=== PATIENT | female | born 1950 | race Caucasian/White ===

== ENCOUNTER 2017-03-03 23:20 | Emergency (ER) | payer OTHER ==
[~2017-03-03 23:20] MED LIST: ALLERGY RELIEF10 MG PO; ASPIRIN FOR CHI81 MG PO; AUG500 PO; CALCIUM & MAGNE1 CAP PO; COL100 PO; LISINOPRIL AND1 TA1 PO; PREMARIN0.625 M; PREMARIN0.625 M PO; PRI20 PO; TOP50 PO; WARFARIN SOD5 MG PO; XAN5 PO; XARELTO20 MG PO
[2017-03-04 02:18] VITALS: BP 160/88
== END 2017-03-04 02:18 | disposition home or self-care (01) ==
LOC: ED 23:20
DX: S86.812A Strain of other muscle(s) and tendon(s) at lower leg level, left leg, initial encounter (principal); I10 Essential (primary) hypertension; Z88.8 Allergy status to other drugs, medicaments and biological substances; Z88.5 Allergy status to narcotic agent; Z88.6 Allergy status to analgesic agent; Z91.012 Allergy to eggs; Z91.011 Allergy to milk products; Z91.013 Allergy to seafood; X58.XXXA Exposure to other specified factors, initial encounter; Y99.8 Other external cause status; Y93.89 Activity, other specified; Y92.89 Other specified places as the place of occurrence of the external cause
CPT/HCPCS: J1885; Q0092

== ENCOUNTER 2017-03-12 16:52 | Emergency (ER) | payer OTHER ==
[2017-03-12 18:59] LABS: BASOPHIL % 0.1 % (0-2); PLATELET COUNT 191 x10^3mcL (130-400)
[2017-03-12 19:00] LABS: RED CELL DISTRIBUTION WIDTH 14.9 % (11.5-14.5)
[2017-03-12 19:05] LABS: CALCIUM 8.7 mg/dL (8.5-10.1); CARBON DIOXIDE 25.2 mmol/L (21-32); CHLORIDE SERUM 107 mmol/L (98-107); CREATININE SERUM 0.9 mg/dL (0.6-1.0); GFR1 > 60 mL/min; GLUCOSE SERUM 90 mg/dL (74-106); POTASSIUM SERUM 3.9 mmol/L (3.5-5.1); SODIUM SERUM 141 mmol/L (136-145)
[2017-03-12 19:09] LABS: ALBUMIN 3.5 g/dL (3.4-5.0); ALKALINE PHOSPHATASE 75 U/L (46-116); ALT/SGPT 17 U/L (14-59); AST/SGOT 20 U/L (15-37); BILIRUBIN TOTAL 0.48 mg/dL (0.20-1.00); LIPASE 463 IU/L (73-393); TOTAL PROTEIN, SERUM 6.6 g/dL (6.4-8.2)
[2017-03-12 21:43] VITALS: BP 124/79
== END 2017-03-12 21:43 | disposition home or self-care (01) ==
LOC: ED 16:52
PROVIDERS: Emergency Medicine
DX: S52.501A Unspecified fracture of the lower end of right radius, initial encounter for closed fracture (principal); S80.01XA Contusion of right knee, initial encounter; E86.0 Dehydration; R55 Syncope and collapse; I10 Essential (primary) hypertension; Z88.5 Allergy status to narcotic agent; Z88.8 Allergy status to other drugs, medicaments and biological substances; Z91.013 Allergy to seafood; W17.89XA Other fall from one level to another, initial encounter; Y93.89 Activity, other specified; Y99.8 Other external cause status; Y92.89 Other specified places as the place of occurrence of the external cause
CPT/HCPCS: J7030; Q0092

== ENCOUNTER 2017-07-01 23:29 | Emergency (ER) | payer OTHER, MEDICAID ==
[2017-07-01 23:59] LABS: BASOPHIL % 0.2 % (0-2); PLATELET COUNT 188 x10^3mcL (130-400)
[2017-07-02] LABS: RED CELL DISTRIBUTION WIDTH 15.3 % (11.5-14.5)
[2017-07-02] MEDS ORDERED: AMIODARONE HCL200 MG (00:07)
[2017-07-02] MEDS ORDERED: TOPROL XL25 MG (00:08)
[2017-07-02] MEDS ORDERED: ELIQUIS5 MG (00:09)
[2017-07-02 00:18] LABS: CALCIUM 8.1 mg/dL (8.5-10.1); CARBON DIOXIDE 25.9 mmol/L (21-32); POTASSIUM SERUM 3.5 mmol/L (3.5-5.1)
[2017-07-02 00:22] LABS: BILIRUBIN TOTAL 0.3 mg/dL (0.20-1.00); PHOSPHOROUS 3.9 mg/dL (2.5-4.9); TOTAL PROTEIN, SERUM 6.6 g/dL (6.4-8.2); URIC ACID 7.1 mg/dL (2.6-6.0)
[2017-07-02 00:23] LABS: ALBUMIN 3.3 g/dL (3.4-5.0)
[2017-07-02 01:50] VITALS: BP 135/80
== END 2017-07-02 01:50 | disposition home or self-care (01) ==
LOC: ED 23:29
PROVIDERS: Emergency Medicine
DX: R07.9 Chest pain, unspecified (principal); I10 Essential (primary) hypertension; Z88.5 Allergy status to narcotic agent; Z91.012 Allergy to eggs; Z91.011 Allergy to milk products; Z91.013 Allergy to seafood; Z91.09 Other allergy status, other than to drugs and biological substances
CPT/HCPCS: 36415; 83880; Q0092